=== PATIENT | female | born 1940 | race Caucasian/White ===

== ENCOUNTER → 2021-08-27 | Outpatient (CLI) | payer OTHER ==
[~2021-08-27] MED LIST: BIOTIN5 MG PO; BUSPIRONE HCL15 MG PO; CALCIUM 600 +1 EAC8 PO; CHILDREN'S ASPI81 M1 PO; CLONAZEPAM 0.50.5 M1 PO; GABAPENTIN100 MG PO; KRILL OIL500 MG PO; LOSARTAN POTAS100 MG PO; OMEPRAZOLE40 MG PO; PROBIOTIC1 EAC7 PO; SIMVASTATIN40 MG PO; SINEMET 25-1001 EAC1 PO; ZOLOFT 50 MG TA50 MG PO
== END ==
LOC: LAB 05:20
PROVIDERS: ATTEND Student in an Organized Health Care Education/Training Program
DX: Z20.822 Contact with and (suspected) exposure to COVID-19 (principal)

== ENCOUNTER 2021-08-28 06:58 | Day surgery (SDC) | payer OTHER ==
[~2021-08-28] VITALS: Ht 160 cm; Wt 95.3 kg
[2021-08-28 08:00] VITALS: BP 136/68
--- NOTE | 2021-09-03 14:07 | PATH ---
[facility] [address] [place] [address] PATHOLOGY RPT PROCEDURE Name: VIELKA CORMIER Room #: DEP [facility] M.R.#: [id number] Admission: 08/28/21 Date of : 42 Discharge: 08/28/21 Report #: [id number] Path Case #: [id number] [facility] Accession Number: [id number] . 01 Material submitted: . toe - RIGHT SECOND TOE. Modifiers: right, second . 01 Clinical history: . 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 02 Diagnosis: Right second toe: - Bony tissue with osteoid formation surrounded by cartilage. - Skin and soft tissue overlying the bone with hyperkeratosis and scar tissue. - Negative for malignancy. (ANK:kirill; 08/31/2021) MBR 08/31/2021 1200 Local . 02 Electronically signed: . Lary Reed MD, Pathologist NPI- [id number] . 01 Gross description: . The specimen is received in formalin, labeled "Vielka Cormier, right second toe". Received is an amputated digit measuring 3.8 x 2.5 x 2.4 cm in greatest dimensions. The bone margin is blunt in appearance, consistent with transection. The bone and soft tissue margins are inked black. The nail is present displaying a pale cole and severely thickened appearance. The epidermal surface is pale cole and wrinkled to flaky in appearance with no grossly distinct nodules or lesions. A full-thickness longitudinal cross-section is submitted from proximal to distal aspects in cassettes A1 and A2, following decalcification. (CAA; 08/30/2021) QAC/QAC 08/30/2021 1041 Local . 02 Pathologist provided ICD-10: L85.8 . 02 CPT . 332942, [id number] Specimen Comment: A courtesy copy of this report has been sent to [phone] Specimen Comment: [id number] Specimen Comment: Report sent to / DR SORENSEN Specimen Comment: A duplicate report has been [place] [address] PATHOLOGY RPT PROCEDURE Name: VIELKA CORMIER Room #: DEP [facility] M.R.#: [id number] Admission: 08/28/21 Date of : 42 Discharge: 08/28/21 Report #: [id number] Path Case #: [id number] updates. Performed at: [address], [place], [place] [id number] MD Drake Guzman MD Phone: [phone] Performed at: [address] [id number] MD Lary Reed MD Phone: [phone]
== END 2021-08-28 09:17 | disposition home or self-care (01) ==
LOC: OR → TBA 08:30 → OR 09:17
PROVIDERS: ATTEND Podiatrist Foot & Ankle Surgery
DX: M20.41 Other hammer toe(s) (acquired), right foot (principal); L85.8 Other specified epidermal thickening; I10 Essential (primary) hypertension; E78.00 Pure hypercholesterolemia, unspecified; F32.9 Major depressive disorder, single episode, unspecified; F41.9 Anxiety disorder, unspecified; G20 Parkinson's disease; K21.9 Gastro-esophageal reflux disease without esophagitis; Z98.890 Other specified postprocedural states; Z79.899 Other long term (current) drug therapy; Z96.653 Presence of artificial knee joint, bilateral; Z85.3 Personal history of malignant neoplasm of breast; Z88.2 Allergy status to sulfonamides; Z88.8 Allergy status to other drugs, medicaments and biological substances
CPT/HCPCS: 50010; 50101; 50386; 50951; 56525; 57091; 57178

== ENCOUNTER → 2021-08-31 | Outpatient (CLI) | payer OTHER | LOC: ULTRA 13:58 | PROVIDERS: ATTEND Podiatrist Foot & Ankle Surgery | DX: M79.604 Pain in right leg (principal); M79.89 Other specified soft tissue disorders ==